=== PATIENT | female | born 1985 | race Caucasian/White ===

== ENCOUNTER → 2024-07-28 13:20 | Outpatient (REF) | payer OTHER, SELFPAY | LOC: HWRAD 13:20 | PROVIDERS: ATTENDING PHYSICIAN Internal Medicine | DX: R11.0 Nausea (principal) | CPT/HCPCS: 76700 ==

== ENCOUNTER → 2025-08-14 08:22 | Outpatient (REF) | payer OTHER, SELFPAY | LOC: HWRAD 08:22 | PROVIDERS: ATTENDING PHYSICIAN Student in an Organized Health Care Education/Training Program; FAMILY PHYSICIAN Internal Medicine | DX: N93.9 Abnormal uterine and vaginal bleeding, unspecified (principal) | CPT/HCPCS: 76830; 76856 ==